=== PATIENT | female | born 1960 | race Caucasian/White ===

== ENCOUNTER → 2019-01-16 | Outpatient (CLI) | payer OTHER ==
--- NOTE | 2019-01-18 19:16 | SLEEPCENT ---
DATE OF PROCEDURE: 01/16/2019 ORDERED BY: JOANNA Cox Nocturnal polysomnography was performed for the titration of pressure therapy in this patient with obstructive sleep apnea syndrome. For testing a ResMed Quattro full face mask of large size was used, 5 cm of water pressure were applied to the circuit and the lights were extinguished. 7 hours and 52 minutes of data were reviewed. There were 456.5 minutes of sleep identified. Sleep latency was short at 6.5 minutes. Rapid eye movement (REM) latency was short at 17 minutes. Sleep architecture was good with four REM cycles. Overall sleep efficiency was 97.6%. The patient's electrocardiogram showed a sinus rhythm with an average heart rate of 72 beats per minute. EEG showed normal waveforms for awake and sleep. Respiratory events were fully palliated with continuous positive airway pressure (CPAP) at a pressure of +9. There was significant activity in the limb leads and limb movement arousal index was only 1.6. IMPRESSION: Obstructive sleep apnea syndrome (G47.33). RECOMMENDATIONS: Nightly use of pressure therapy 9 cm of water.
== END ==
LOC: M SLEEP 20:00
PROVIDERS: ATTEND Nurse Practitioner Family
DX: G47.33 Obstructive sleep apnea (adult) (pediatric) (principal)

== ENCOUNTER → 2019-09-03 | Outpatient (CLI) | payer OTHER ==
[~2019-09-03] MED LIST: ARIP1TAB PO; BRIM2OPD OU; CLON0.2T PO; GUAN1TA PO; METH20TA29 PO; OMEP1CAP73 PO; ROPI0.253 PO; SERO400T PO; TOPI200T7 PO; WELLTAB38 PO; XALA0.007 OU
== END ==
LOC: M LABSMTC 10:46
PROVIDERS: ATTEND Family Medicine
DX: Z03.818 Encounter for observation for suspected exposure to other biological agents ruled out (principal); Z11.59 Encounter for screening for other viral diseases
CPT/HCPCS: C8903; U0002

== ENCOUNTER → 2019-10-07 | Outpatient (CLI) | payer OTHER | LOC: M LABSMTC 09:38 | PROVIDERS: ATTEND Anesthesiology | DX: Z01.818 Encounter for other preprocedural examination (principal); Z11.59 Encounter for screening for other viral diseases | CPT/HCPCS: C9803; U0003 ==

== ENCOUNTER 2019-10-10 07:44 | Day surgery (SDC) | payer OTHER ==
[~2019-10-10] VITALS: Ht 165.1 cm; Wt 74.8 kg
[~2019-10-10 07:44] MED LIST changes: +EPINEPHrine 1MG/ML INJ 30ML MD-VIAL As Ordered ONE; +LIDOCAINE W/EPINEPHRINE 1% 20ML VIAL As Ordered ONE; +LR 1,000 ML IV ONE; +METHYLENE BLUE 0.5% (5MG/ML) 10 ML AMP (PROVAYBLUE) As Ordered ONE
[2019-10-10] MEDS ORDERED: propofoL 200 MG/20 ML VIAL As Ordered ONE (08:59)
[2019-10-10] MEDS ORDERED: LIDOCAINE 2% 100MG/5ML SDV (FOR ANES.) As Ordered ONE ×2 (08:59→09:06)
[2019-10-10] MEDS ORDERED: ROCURONIUM BROMIDE 50 MG/5 ML VIAL As Ordered ONE (08:59)
[2019-10-10] MEDS ORDERED: fentaNYL 100 MCG/2 ML INJECTION (J3010) As Ordered ONE (09:00)
[2019-10-10] MEDS ORDERED: ONDANSETRON 4MG/2ML VIAL As Ordered ONE (09:00)
[2019-10-10] MEDS ORDERED: MIDAZOLAM INJ 2MG/2ML VIAL (J2250 PER 1MG) As Ordered ONE (09:00)
[2019-10-10] MEDS ORDERED: dexameTHASONE 4 MG/ML 1ML VIAL (J1100 PER 1MG) As Ordered ONE (09:00)
[2019-10-10] MEDS ORDERED: EPINEPHrine 1MG/ML INJ 30ML MD-VIAL As Ordered ONE ×2 (09:29→10:02)
[2019-10-10] MEDS ORDERED: LIDOCAINE W/EPINEPHRINE 1% 20ML VIAL As Ordered ONE (09:29)
[2019-10-10] MEDS ORDERED: METHYLENE BLUE 0.5% (5MG/ML) 10 ML AMP (PROVAYBLUE) As Ordered ONE (09:29)
[2019-10-10] MEDS ORDERED: METOCLOPRAMIDE INJ 10MG/2ML VIAL (J2765 PER 1) As Ordered ONE (10:10)
[2019-10-10] MEDS ORDERED: ACETAMINOPHEN 1000MG 100ML IV BTL (OFIRMEV) (J0131 PER 10MG) As Ordered ONE (10:10)
[2019-10-10] MEDS ORDERED: PHENYLephrine 500MCG 5ML (100MCG/ML) SYRINGE As Ordered ONE (10:14)
[2019-10-10] MEDS ORDERED: ePHEDrine SULFATE 25 MG/5 ML(5MG/ML) SYRINGE As Ordered ONE (10:14)
[2019-10-10] MEDS ORDERED: fentaNYL 100 MCG/2 ML INJECTION (J3010) IV PRN (10:45)
[2019-10-10] MEDS ORDERED: oxyCODONE 5MG TAB PO PRN (10:45)
[2019-10-10] MEDS ORDERED: ACETAMINOPH W/CODEINE #3 TAB UD PO PRN (10:45)
[2019-10-10] MEDS ORDERED: HYDROMORPHONE HCL 0.5 MG/ 0.5 ML SYRINGE (J1170 PER 1) IV PRN (10:45)
[2019-10-10] MEDS ORDERED: LR 1,000 ML IV SCH ×2 (10:45)
[2019-10-10] MEDS ORDERED: ONDANSETRON 4MG/2ML VIAL IV PRN (10:45)
[2019-10-10 11:56] VITALS: BP 97/57
[2019-10-10] MEDS ORDERED: SUGAMMADEX SODIUM 500 MG/5 ML VIAL (BRIDION) As Ordered ONE (13:34)
--- NOTE | 2019-10-12 00:35 | ECGEPIP ---
[facility] Test Date: 2019-10-10 Pat Name: ESTEFANY NGUYEN Department: Room: - Gender: Female Doorkeeper: VALENTINO : 1960 Requested By: KASH PRECIADO Order Number: [id number] Reading MD: Emre Alonso Measurements Intervals [place] Rate: 51 P: 37 TN: 158 QRS: -16 QRSD: 90 T: -17 QT: 443 QTc: 412 Interpretive Statements SINUS BRADYCARDIA WITH BORDERLINE LEFT AXIS DEVIATION Non specific ST/T abnormality NO PRIOR TRACING Electronically Signed on 10-12-2019 0:34:49 EDT by Emre Alonso
--- NOTE | 2019-10-12 11:03 | RO ---
DATE OF PROCEDURE: 10/10/2019 PREOPERATIVE DIAGNOSIS: Nasal septal deviation, chronic rhinitis. POSTOPERATIVE DIAGNOSIS: Nasal septal deviation, chronic rhinitis. OPERATIVE PROCEDURE: Septoplasty. Bilateral turbinectomy. SURGEON: Dr. Suhail Camacho SUPERVISOR PHOTOSTAT: ANESTHESIA: DESCRIPTION OF PROCEDURE: Under general anesthesia with the patient intubated, the patient was draped in the usual manner. I used pledgets of adrenaline 1:1000 and infiltrated with lidocaine and epinephrine. I started on the left side. I made an incision anteriorly and elevated a subperichondrial and periosteal plane. I the quadrangular cartilage from the ethmoid plate and maxillary crest and then portions of both maxillary crest and ethmoid plate. The anterior nasal spine was deviated towards the left side so I fractured and mobilized it towards the midline. I then stitched the septum in midline after I had made a relaxing incision on the septum. The incision was closed with #4-0 chromic. I made an incision anterior to the inferior turbinate on both sides. I elevated mucosa. I then used a microdebrider and removed some brett anteriorly. I then closed that incision with #4-0 Vicryl on both sides. The patient tolerated the procedure well. Less than 20 mL estimated blood loss.
== END 2019-10-10 12:37 | disposition home or self-care (01) ==
LOC: M SDC 07:44
PROVIDERS: ATTEND Otolaryngology
DX: J34.2 Deviated nasal septum (principal); J31.0 Chronic rhinitis; K21.9 Gastro-esophageal reflux disease without esophagitis; E11.9 Type 2 diabetes mellitus without complications; Z86.73 Personal history of transient ischemic attack (TIA), and cerebral infarction without residual deficits; Z98.84 Bariatric surgery status; F43.10 Post-traumatic stress disorder, unspecified; F31.9 Bipolar disorder, unspecified; F41.9 Anxiety disorder, unspecified; F32.9 Major depressive disorder, single episode, unspecified; G47.30 Sleep apnea, unspecified; Z79.899 Other long term (current) drug therapy
CPT/HCPCS: 30140; 30520; 88300; 93005; J0131; J1100; J2250; J2370; J2405; J2765; J3010; Q9968

== ENCOUNTER → 2021-02-02 | Outpatient (CLI) | payer MEDICARE, OTHER ==
[~2021-02-02] MED LIST changes: -EPINEPHrine 1MG/ML INJ 30ML MD-VIAL As Ordered ONE; -LIDOCAINE W/EPINEPHRINE 1% 20ML VIAL As Ordered ONE; -LR 1,000 ML IV ONE; -METHYLENE BLUE 0.5% (5MG/ML) 10 ML AMP (PROVAYBLUE) As Ordered ONE
--- NOTE | 2021-02-05 14:28 | SLEEPHOME ---
DATE: 02/02/2021 ORDERED BY: JOANNA Hernandez Nocturnal polysomnography was performed for re-titration of pressure therapy in this patient with obstructive sleep apnea syndrome and persistent symptoms. For testing, a ResMed F20 full face mask of medium size was used, 10 cm of water pressure was initially applied to the circuit and the lights were extinguished. Seven hours and 55 minutes of data were reviewed. There were 429 minutes of sleep identified. Sleep latency was short at 1.5 minutes. REM sleep was delayed at 345.5 minutes. Sleep architecture was fragmented early with poor progression. Improvement was seen late in the study and there was one REM cycle. Overall, sleep efficiency 91.7%. The electrocardiogram showed a sinus rhythm with an average heart rate of 55 beats per minute. EEG showed some coarsening in the background. No focal events were identified and there were normal waveforms for wake and sleep. Persistence of respiratory events prompted an increase in CPAP pressure and despite optimal mask fit and minimal air leak the patient required a change to a bilevel device. Best sleep was seen on a bilevel pressure therapy inspiratory 25/expiratory 21. Some scattered limb activity and snoring, remaining measures of sleep physiology were normal. IMPRESSIONS: Obstructive sleep apnea (G47.33). RECOMMENDATION: Nightly use of bilevel pressure therapy, inspiratory pressure 25/expiratory pressure 21. cc: Valdo Grande NP
== END ==
LOC: M SLEEP 20:00
PROVIDERS: ATTEND Nurse Practitioner Family
DX: G47.33 Obstructive sleep apnea (adult) (pediatric) (principal)